=== PATIENT | female | born 1990 ===

== ENCOUNTER → 2018-04-20 22:07 | Outpatient (REF) | payer BC, SELFPAY ==
[2018-04-21 00:01] LABS: Add Manual Diff / Slide Review NO; Basophils Absolute Auto 0 /uL (0-100); Basophils Percent Auto 0.7 % (0-2); Eosinophils Absolute Auto 0 /uL (0-450); Eosinophils Percent Auto 0.2 % (2-4); Hematocrit 38.6 % (36-46); Hemoglobin 12.2 g/dL (12.0-16.0); Lymphocytes Absolute Auto 1300 /uL (1100-4500); Mean Corpuscular HGB Conc 31.5 % (30-36); Mean Corpuscular Hemoglobin 23.3 PG (26-34); Mean Corpuscular Volume 73.9 fL (80-100); Monocytes Absolute Auto 400 /uL (0-900); Monocytes Percent Auto 8.7 % (3-14); Neutrophils Absolute Auto 2900 /uL (1500-7000); Neutrophils Percent Auto 62.4 % (50-75); Platelet Count 356 X10^3/uL (150-400); Red Blood Cell Count 5.22 X10^6/uL (4.0-5.2); Red Cell Distribution Width 15.3 % (11.6-14.8); White Blood Cell Count 4.7 X10^3/uL (4.5-11.0)
[2018-04-21 03:10] LABS: Alanine Aminotransferase 23 IU/L (9-52); Albumin 4.6 g/dL (3.5-5.0); Albumin Globulin Ratio 1.5 (1.0-2.8); Alkaline Phosphatase 62 U/L (38-126); Aspartate Aminotransferase 25 IU/L (14-36); BUN Creatinine Ratio 17.1 (6-22); Bilirubin Total 0.4 mg/dL (0.2-1.3); Blood Urea Nitrogen 12 mg/dL (7-17); Calcium 9.4 mg/dL (8.4-10.2); Carbon Dioxide 28 mmol/L (22-32); Chloride 103 mmol/L (98-107); Estimated Glomerular Filt Rate > 60.0 mL/min (>60); Globulin 3.1 g/dL (1.7-4.1); Glucose 79 mg/dL (70-100); HEMOLYSIS < 15 (0-50); Lipase 90 U/L (23-300); Potassium 4.6 mmol/L (3.4-5.1); Sodium 139 mmol/L (137-145); Total Protein 7.7 g/dL (6.3-8.2)
[2018-04-21 03:14] LABS: Thyroid Stimulating Hormone 0.85 uIU/mL (0.47-4.68)
[2018-04-21 03:37] LABS: Ferritin 5.2 ng/mL (6.27-137)
[2018-04-21 07:47] LABS: Free T4, Direct Thyroxine 1.33 ng/dL (0.78-2.19)
== END ==
LOC: LAB 22:07
PROVIDERS: Visit Provider Naturopath
DX: R10.9 Unspecified abdominal pain (principal); Z13.89 Encounter for screening for other disorder; R53.83 Other fatigue; R63.4 Abnormal weight loss
CPT/HCPCS: 36415; 80053; 82728; 83013; 83690; 84439; 84443; 84481; 85025